=== PATIENT | female | born 1960 | race Caucasian/White ===

== ENCOUNTER 2018-02-09 16:53 | Emergency (ER) | payer OTHER ==
--- NOTE | 2018-02-09 17:47 | C.PDOC ---
History Of Present Illness 57 yr old postmenopausal female p/w rlq abdominal pain, started 3 hours ago, throbbing, without radiation, first time occurence. No fall or trauma. Pt did not try taking pain meds for her pain but notes multiple episodes of nausea and vomiting x3, non bilious, non bloody. Last BM was normal, this morning. No trauma or falls. No urinary complaints. No vaginal d/c or rash. No abdominal rash. No fever, chills or night sweats. No chest pain or sob. No other complaints. <Tamir Colon - Last Filed: 02/10/18 07:33> <Gaby Alvarez - Last Filed: 02/09/18 20:17> <Tamir Colon - Last Filed: 02/10/18 07:33> Time Seen by Provider: 02/09/18 17:47 Chief Complaint (Nursing): Abdominal Pain Past Medical History Vital Signs: Last Vital Signs Temp 98 F 02/09/18 19:31 Pulse 18 L 02/09/18 19:31 Resp 76 H 02/09/18 19:31 BP 133/76 02/09/18 19:31 Pulse Ox 98 02/09/18 19:31 <Gaby Alvarez - Last Filed: 02/09/18 20:17> Vital Signs: Last Vital Signs Temp 97.5 F L 02/09/18 16:59 Pulse 86 02/09/18 16:59 Resp 18 02/09/18 16:59 BP 156/85 H 02/09/18 16:59 Pulse Ox 97 02/09/18 16:59 Family History: States: Unknown Family Hx - Social History Hx Alcohol Use: No Hx Substance Use: No - Immunization History Hx Tetanus Toxoid Vaccination: No Hx Influenza Vaccination: Yes Hx Pneumococcal Vaccination: No <Tamir Colon - Last Filed: 02/10/18 07:33> Review Of Systems Constitutional: Negative for: Fever, Chills, Sweats, Weakness, Malaise Eyes: Negative for: Pain, Vision Change, Redness ENT: Negative for: Ear Pain, Ear Discharge Cardiovascular: Negative for: Chest Pain, Palpitations Respiratory: Negative for: Cough, Shortness of Breath, SOB with Excertion, Pleuritic Pain Gastrointestinal: Positive for: Nausea, Vomiting, Abdominal Pain. Negative for: Diarrhea, Constipation, Melena, Hematochezia, Hematemesis Genitourinary: Negative for: Dysuria, Frequency, Incontinence, Hematuria, Vaginal Discharge, Vaginal Bleeding Musculoskeletal: Negative for: Neck Pain, Shoulder Pain Skin: Negative for: Rash, Lesions Neurological: Negative for: Weakness, Numbness <Tamir Colon Last Filed: 02/10/18 07:33> Physical Exam - Physical Exam Appears: Well, Non-toxic Skin: Normal Color, Warm Head: Atraumatic, Normacephalic Eye(s): bilateral: Normal Inspection, PERRL, EOMI Ear(s): Bilateral: Normal Nose: Normal Oral Mucosa: Moist Tongue: Normal Appearing Lips: Normal Appearing Teeth: Normal Dentition Gingiva: Normal Appearing Throat: Normal, No Erythema Neck: Normal, Normal ROM, Trachea Midline, Other (no meningeal signs) Chest: Symmetrical, No Deformity, No Tenderness Cardiovascular: Rhythm Regular Respiratory: Normal Breath Sounds, No Decreased Breath Sounds, No Accessory Mus james Use, No Rales, No Rhonchi, No Stridor, No Wheezing Gastrointestinal/Abdominal: Soft, Tenderness (rlq), No Mass, No Distention, No Guarding, No Rebound, No Hernia, No Ascites Back: Normal Inspection, No CVA Tenderness, No Vertebral Tenderness Extremity: Normal ROM, No Tenderness, No Calf Tenderness Neurological/Psych: Oriented x3, Normal Speech, Normal Cognition Gait: Steady <Tamir Colon - Last Filed: 02/10/18 07:33> ED Course And Treatment - Laboratory Results Result Diagrams: 02/09/18 18:07 02/09/18 18:07 <Gaby Alvarez - Last Filed: 02/09/18 20:17> - Laboratory Results Result Diagrams: 02/09/18 18:07 02/09/18 18:07 O2 Sat by Pulse Oximetry: 97 <Tamir Colon - Last Filed: 02/10/18 07:33> Progress - Re-Evaluation Re-evaluation Note: 02/09/18 19:35 NEG APPY PER US RAD. PT W PERSIST RLQ PAIN. UA NO HEMATURIA. 02/09/18 20:17 FEELS BETTER. INITIAL ONSET R MID ABD PAIN, RADIATION PELVIS. NO ASSOC W EATING. DENIES HEMATURIA, PRIOR HO KIDNEY STONE. EXAM NEG. POSSIBLE RENAL COLIC? PT AND FAMILY AGREE W DC PLAN. - Data Reviewed Data Reviewed: Lab, Diagnostic imaging, Old records <Ho,Gaby - Last Filed: 02/09/18 20:17> Medical Decision Making Medical Decision Makin yr old F, postmenopausal p/w abdominal pain. RLQ pain on exam. Will seek CT to rule out appds. No urinary complaints. No complaints. Likely gastritis vs divericulitis vs appendicits (no rebound or peritoneal signs on exam) Pending imaging, labs 1827 leukocytosis on labs pending ct, ua, additional labs 1848 EK, nsr, no stemi [address] Alvarez pending imaging. <Tamir Colon - Last Filed: 02/10/18 07:33> Disposition Counseled Patient/Family Regarding: Studies Performed, Diagnosis, Need For Followup, Rx Given - Disposition Disposition Time: 20:19 <Gaby Alvarez - Last Filed: 02/09/18 20:17> <Tamir Colon - Last Filed: 02/10/18 07:33> - Disposition Referrals: [facility] [Outside] [facility] [Outside] [facility] [Outside] Disposition: HOME/ ROUTINE Condition: IMPROVED Prescriptions: Ibuprofen [Motrin] 600 mg PO Q6 #30 tab Ondansetron ODT [Zofran ODT] 4 mg PO TID PRN #12 odt PRN Reason: Nausea/Vomiting Tamsulosin [Flomax] 0.4 mg PO DAILY #14 cap Instructions: Acute Abdomen (Belly Pain), Adult (DC) Forms: [employer] ([place]) - Clinical Impression Clinical Impression: Abdominal pain
[2018-02-09 18:10] LABS: BASO % 0.2 % (0.0-2.0); EOS % 0.1 % (0.0-4.0); HEMOGLOBIN 12.9 g/dL (11.0-16.0); LYMPH # 1.8 K/uL (1.0-4.3); LYMPH % 13.2 % (20.0-40.0); MEAN CELL VOLUME 85.5 fL (81.0-99.0); MEAN CORPUSCULAR HGB CONC 32.8 g/dL (33.0-37.0); MEAN PLATELET VOLUME 9.8 fL (7.2-11.7); MONO # 0.4 K/uL (0.0-0.8); MONO % 3.1 % (0.0-10.0); NEUT # 11.7 K/uL (1.8-7.0); NEUT % 83.4 % (50.0-75.0); RBC 4.6 Mil/uL (3.80-5.20); RED CELL DISTRIBUTION WIDTH 14.2 % (11.5-14.5)
[2018-02-09 18:22] LABS: ALB/GLOB RATIO 1.5 (1.0-2.1); ALBUMIN 4.9 g/dL (3.5-5.0); ALT/SGPT 30 U/L (9-52); AST/SGOT 20 U/L (14-36); BLOOD UREA NITROGEN 17 mg/dL (7-17); CALCIUM 9.8 mg/dl (8.6-10.4); GFR NON-AFRICAN AMERICAN > 60; LIPASE 33 U/L (23-300)
[2018-02-09] MEDS ORDERED: Morphine 4 MG/ML VIAL ONE ×2 (18:38→19:27)
[2018-02-09] MEDS ORDERED: Iohexol 300 100 ML IJ ONE (18:45)
[2018-02-09 18:50] LABS: VENOUS BLOOD GAS PCO2 36 mmHg (40-60); VENOUS BLOOD GAS PO2 55 mm/Hg (30-55)
[2018-02-09 18:50] LABS: SQUAMOUS EPITHIAL 5 /hpf (0-5); URINE AMORPHOUS SEDIMENT RARE /ul (<OCC); URINE BACTERIA OCC (<OCC); URINE BILIRUBIN NEGATIVE (NEGATIVE); URINE BLOOD NEGATIVE (NEGATIVE); URINE CLARITY Hazy (Clear); URINE COLOR Yellow (YELLOW); URINE GLUCOSE (UA) NORMAL (Normal); URINE LEUKOCYTE ESTERASE NEG Leu/uL (Negative); URINE PROTEIN NEGATIVE (NEGATIVE); URINE UROBILINOGEN NORMAL mg/dL (0.2-1.0)
[2018-02-09 19:32] VITALS: TEMP 98
[2018-02-09 20:34] VITALS: BP 132/69; PULSE 78; RESP 18
[2018-02-10 07:34] VITALS: O2SAT 97
--- NOTE | 2018-02-10 14:53 | CT ---
Date of service: 02/09/2018 PROCEDURE: CT Abdomen and Pelvis with contrast HISTORY: rlq pain COMPARISON: None. TECHNIQUE: Contrast dose: 100 mL Omnipaque 300 Radiation dose: Total exam DLP = 751.31 mGy-cm. This CT exam was performed using one or more of the following dose reduction techniques: Automated exposure control, adjustment of the mA and/or kV according to patient size, and/or use of iterative reconstruction technique. FINDINGS: LOWER THORAX: Unremarkable. LIVER: Unremarkable. No gross lesion or ductal dilatation. GALLBLADDER AND BILE DUCTS: Unremarkable. PANCREAS: Unremarkable. No gross lesion or ductal dilatation. SPLEEN: Unremarkable. ADRENALS: Unremarkable. No mass. KIDNEYS AND URETERS: Right hydronephrosis and hydroureter. Obstructing 3 mm calculus at the right ureterovesical junction. There is asymmetric renal parenchymal enhancement with prolongation of cortical enhancement in the right kidney consistent with an obstructing uropathy. No left hydronephrosis. No renal mass. VASCULATURE: Unremarkable. No aortic aneurysm. No aortic atherosclerotic calcification or mural plaque present. BOWEL: Unremarkable. No obstruction. No gross mural thickening. APPENDIX: Normal appendix. PERITONEUM: Unremarkable. No free fluid. No free air. LYMPH NODES: Unremarkable. No enlarged lymph nodes. BLADDER: Suboptimally distended. Grossly normal. REPRODUCTIVE: Uterus with multiple low-density masses likely fibroids. Largest roughly 2.1 cm in diameter BONES: No acute fracture. OTHER FINDINGS: None. IMPRESSION: Obstructing 3 mm calculus at the right ureterovesical junction with mild right hydroureteronephrosis. The preliminary findings for this examination were reported by [facility] at 7:30 p.m. on 02/09/2018. There is discordance of this report with the preliminary findings. The obstructing right ureterovesical junction calculus was not described in the preliminary report of this examination. These findings were discussed by telephone with SEBASTIAN Marcelino at 2:45 p.m. on 02/10/2018.
--- NOTE | 2018-02-12 13:06 | CARD ---
APPROVED REPORT Date of service: 02/09/2018 EKG Measurement Heart [id number] <Conclusion> Normal sinus rhythm Normal ECG
== END 2018-02-09 20:42 | disposition home or self-care (01) ==
LOC: C.ER 16:53
DX: R10.31 Right lower quadrant pain (principal)
CPT/HCPCS: 74177; 80053; 81001; 82803; 83690; 84484; 85025; 93005; 96374; 96375; 96376; 99285; J1885; J2270; Q9967